=== PATIENT | female | born 1970 | race Caucasian/White ===

== ENCOUNTER 2016-11-30 13:41 | Emergency (ER) | payer OTHER ==
[2016-11-30 13:42] VITALS: BP 127/71; PULSE 70; RESP 20; TEMP 99.4; O2SAT 98
[2016-11-30 13:46] VITALS: BP 134/78; PULSE 108; RESP 20; TEMP 98.9; O2SAT 99
[2016-11-30] MEDS ORDERED: NYSTAT/DIPHENHY/LIDO MOUTHWASH (Adult) 120ML SWISH-SPIT ONE (13:58)
[2016-11-30] MEDS ORDERED: PENICILLIN V POTASSIUM 500 MG TAB PO ONE (14:00)
--- NOTE | 2016-11-30 14:01 | PD ---
HPI Chief Complaint: Oral / Dental Pain or Problem Time Seen by Provider: 13:59 Travel History International Travel<30 days: No Contact w/Intl Traveler<30days: No Traveled to known affect area: No History of Present Illness HPI 46-year-old female presents the emergency department with severe left upper dental pain. She states he lost a #15 tooth yesterday, and she now has severe pain, and localized swelling since yesterday. Her pain is currently a 9 out 10. She has increased pain with hot and cold. She denies fever, chills, or difficulty swallowing. Patient is allergic to nonsteroidal medications and tramadol. She's been taking Tylenol without relief. Her allergy is anaphylactic with NSAIDs. PFSH Past Medical History Medical History: Denies Significant Hx ?: Not Past Surgical History Hysterectomy: Yes Tonsillectomy: Yes Social History Alcohol Use: No Tobacco Use: No Substance Use: No Allergies-Medications (Allergen,Severity, Reaction): Coded Allergies: Nonsteroidal Anti-Inflammatory Agts (Verified Allergy, Unknown, Swelling, 11/30/16) Tramadol (Verified Allergy, Unknown, 11/30/16) Reported Meds & Prescriptions Reported Meds & Active Scripts Active Magic Mouthwash Adult Liq (Multi-Ingredient Mouthwash/Gargle) 120 Ml Susp 5-10 Ml SWISH-SWAL ACHS Each 5 mL contains: Nystatin 200,000 units, Diphenhydramine 4.25 mg, Viscous Lidocaine 10 mg, Daugherty syrup 0.8 mL Penicillin V Potassium 500 Mg Tab 500 Mg PO Q6H 10 Days Non-Aspirin Pain Relief ES (Acetaminophen) 500 Mg Tab 1,000 Mg PO Q6HR PRN Review of Systems Except as stated in HPI: all other systems reviewed are Neg General / Constitutional: No: Fever Eyes: No: Visual changes HENT: No: Headaches Cardiovascular: No: Chest Pain or Discomfort Respiratory: No: Shortness of Breath Gastrointestinal: No: Abdominal Pain Genitourinary: No: Dysuria Musculoskeletal: No: Pain Skin: No Rash Neurologic: No: Weakness Psychiatric: No: Depression Endocrine: No: Polydipsia Hematologic/Lymphatic: No: Easy Bruising Physical Exam Narrative GENERAL: Patient is in moderate distress. SKIN: Warm and dry. Normal color. Normal turgor. HEAD: Atraumatic. Normocephalic. Mild swelling of the left upper jaw region. EYES: Pupils equal and round. No scleral icterus. No injection or drainage. ENT: No nasal bleeding or discharge. Mucous membranes pink and moist. Pharynx is clear. TMs are clear bilaterally. Patient has mild swelling to the gingiva of the left upper jaw. Patient is indeed missing a cap from her #15 tooth. NECK: Trachea midline. Supple nontender without lymphadenopathy. CARDIOVASCULAR: Regular rate and rhythm. RESPIRATORY: No accessory muscle use. Clear to auscultation. Breath sounds equal bilaterally. GASTROINTESTINAL: Abdomen soft, non-tender, nondistended. Hepatic and splenic margins not palpable. MUSCULOSKELETAL: Extremities without clubbing, cyanosis, or edema. No obvious deformities. NEUROLOGICAL: Awake and alert. No obvious cranial nerve deficits. Motor grossly within normal limits. Five out of 5 muscle strength in the arms and legs. Normal speech. PSYCHIATRIC: Appropriate mood and affect; insight and judgment normal. Data Data Last Documented VS Vital Signs Date Time Temp Pulse Resp B/P Pulse Ox O2 Delivery O2 Flow Rate FiO2 11/30/16 13:46 98.9 108 20 134/78 99 Orders Seoe-Rpfd-Qkki Liq (Magic Mouthwash Adul (11/30/16 13:58) Penicillin V Potassium (Veetids) (11/30/16 14:00) Bupivacaine-Epi Pf 0.5% Inj (Sensorcaine (11/30/16 14:15) MDM Medical Decision Making Medical Screen Exam Complete: Yes Emergency Medical Condition: Yes Differential Diagnosis Dental pain. Dental caries. Dental abscess. Narrative Course Patient is medically stable at time of exam. Patient is given 500 mg Pen-Vee K by mouth. Patient is given a trial of Magic mouthwash by mouth. Patient is offered but refuses a dental block at this time. Patient will be continued on Pen-Vee K 500 mg 4 times a day. Patient is given a prescription for acetaminophen 1000 mg every 6 hours #60. Patient is given Magic mouthwash as directed 120 mL with 1 refill. Patient is to use hot compresses and ice as needed. Patient follow-up with local dentist resources as discussed. 1500 hrs. patient is noted to be absent from the room prior to being discharged by nursing staff. It seems the patient eloped prior to receiving prescriptions and discharge information. Diagnosis Primary Impression: Dental abscess Referrals: Dentist Patient Instructions: Dental Abscess (ED), General Instructions Additional Instructions: Patient is medically stable at time of exam. Patient is given 500 mg Pen-Vee K by mouth. Patient is given a trial of Magic mouthwash by mouth. Patient is offered but refuses a dental block at this time. Patient will be continued on Pen-Vee K 500 mg 4 times a day. Patient is given a prescription for acetaminophen 1000 mg every 6 hours #60. Patient is given Magic mouthwash as directed 120 mL with 1 refill. Patient is to use hot compresses and ice as needed. Patient follow-up with local dentist resources as discussed. Med/Other Pt SpecificInfo: Prescription(s) given Scripts Tmcnkjfj-Jipjosqyazsrsxt-Ktblxxsbu Liq (Magic Mouthwash Adult Liq)120 Ml Susp5- 10 Ml SWISH-SWAL ACHS #120 ML Ref 2 Each 5 mL contains: Nystatin 200,000 units, Diphenhydramine 4.25 mg, Viscous Lidocaine 10 mg, Daugherty syrup 0.8 mL Prov:Jenny Meyer MD 11/30/16 Penicillin V Potassium 500 Mg [id number] Mg PO Q6H 10 Days Prov:Jenny Meyer MD 11/30/16 Acetaminophen (Non-Aspirin Pain Relief ES)500 Mg Tab1,000 Mg PO Q6HR PRN (PAIN) #60 TAB Prov:Jenny Meyer MD 11/30/16 Disposition: 01 DISCHARGE HOME Condition: Stable Kalpesh Vivas Nov 30, 2016 14:01
[2016-11-30] MEDS ORDERED: BUPIVACAINE/EPINEPHRINE 0.5% PF 10 ML VIAL EPIDURAL ONE (14:15)
[2016-11-30] MEDS ORDERED: MAGICADU2 SWISH-SWAL (14:50)
[2016-11-30] MEDS ORDERED: NON-500T13 PO (14:50)
[2016-11-30] MEDS ORDERED: PENI500T PO (14:50)
== END 2016-11-30 15:12 | disposition home or self-care (01) ==
LOC: NEPK 13:41
DX: K04.7 Periapical abscess without sinus (principal)
CPT/HCPCS: 99284

== ENCOUNTER 2017-01-15 22:42 | Emergency (ER) | payer OTHER ==
[~2017-01-15] VITALS: Ht 157.5 cm; Wt 82.0 kg
[~2017-01-15 22:42] MED LIST: MAGICADU2 SWISH-SWAL; NON-500T13 PO; PENI500T PO
[2017-01-15 22:45] VITALS: BP 120/72; PULSE 63; RESP 16; TEMP 98.4; O2SAT 98
--- NOTE | 2017-01-15 23:05 | PD ---
HPI Chief Complaint: Skin Problem Time Seen by Provider: 23:05 Travel History International Travel<30 days: No Contact w/Intl Traveler<30days: No Traveled to known affect area: No History of Present Illness HPI 46 year-old female presents to [facility] department for evaluation of erythema on her left buttock. Patient states that she has been treated for an abscess recently. She was on it Bactrim and the area was lanced. She states that it improved however 2 new areas have a fall and are painful. There is one on her left buttock began draining but is still reddened. Denies any fever or chills. Denies new cleansing products. Does not recall getting bit by an insect. No other symptoms to report. PFSH Past Medical History ?: Not Past Surgical History Hysterectomy: Yes Tonsillectomy: Yes Social History Alcohol Use: No Tobacco Use: No Substance Use: No Allergies-Medications (Allergen,Severity, Reaction): Coded Allergies: diclofenac (Unverified Allergy, Unknown, Swelling, 01/15/17) etodolac (Unverified Allergy, Unknown, Swelling, 01/15/17) flurbiprofen (Unverified Allergy, Unknown, Swelling, 01/15/17) ibuprofen (Unverified Allergy, Unknown, Swelling, 01/15/17) indomethacin (Unverified Allergy, Unknown, Swelling, 01/15/17) ketoprofen (Unverified Allergy, Unknown, Swelling, 01/15/17) ketorolac (Unverified Allergy, Unknown, Swelling, 01/15/17) naproxen (Unverified Allergy, Unknown, Swelling, 01/15/17) oxaprozin (Unverified Allergy, Unknown, Swelling, 01/15/17) tramadol (Unverified Allergy, Unknown, 01/15/17) Reported Meds & Prescriptions Reported Meds & Active Scripts Active Clindamycin (Clindamycin HCl) 150 Mg Cap 300 Mg PO Q6H 10 Days Non-Aspirin Pain Relief ES (Acetaminophen) 500 Mg Tab 1,000 Mg PO Q6HR PRN Review of Systems Except as stated in HPI: all other systems reviewed are Neg Physical Exam Narrative GENERAL: Well-nourished female patient, in no acute distress SKIN: Focused skin assessment warm/dry. There is a 3 cm in diameter area of erythema on the left buttock with a scabbed center. There is no fluctuance. The area is tender to touch. HEAD: Atraumatic. Normocephalic. EYES: Pupils equal and round. No scleral icterus. No injection or drainage. ENT: No nasal bleeding or discharge. Mucous membranes pink and moist. NECK: Trachea midline. No JVD. CARDIOVASCULAR: Regular rate and rhythm. No murmur appreciated. RESPIRATORY: No accessory muscle use. Clear to auscultation. Breath sounds equal bilaterally. GASTROINTESTINAL: Abdomen soft, non-tender, nondistended. Hepatic and splenic margins not palpable. MUSCULOSKELETAL: No obvious deformities. No clubbing. No cyanosis. No edema. NEUROLOGICAL: Awake and alert. No obvious cranial nerve deficits. Motor grossly within normal limits. Normal speech. PSYCHIATRIC: Appropriate mood and affect; insight and judgment normal. Data Data Last Documented VS Vital Signs Date Time Temp Pulse Resp B/P (MAP) Pulse Ox O2 Delivery O2 Flow Rate FiO2 01/15/17 23:40 01/15/17 22:45 98.4 63 16 98 Room Air Orders Orders Acetaminophen (Tylenol) (01/15/17 23:15) Clindamycin (Cleocin) (01/15/17 23:15) MDM Medical Decision Making Medical Screen Exam Complete: Yes Emergency Medical Condition: Yes Medical Record Reviewed: Yes Differential Diagnosis Cellulitis versus abscess versus erysipelas versus folliculitis Narrative Course 46-year-old female presents to emergency department for evaluation of left buttock lesion. Physical exam is consistent with a cellulitis. I have explained the patient that this may develop into an abscess in the drain. She' ll be started on clindamycin. She is given her first dose here. She is encouraged to follow-up with primary care provider return immediately with any acute worsening of symptoms. Diagnosis Primary Impression: Cellulitis of left buttock Referrals: Primary Care Physician Patient Instructions: Cellulitis (ED), General Instructions Additional Instructions: WARM COMPRESSES TO THE AFFECTED AREA START ANTIBIOTICS IN AM; TAKE UNTIL ALL GONE TYLENOL DIRECTED ON THE PACKAGE NEEDED FOR PAIN RETURN IMMEDIATELY WITH ANY ACUTE WORSENING OF SYMPTOMS Med/Other Pt SpecificInfo: Prescription(s) given Scripts Clindamycin (Clindamycin) 150 Mg Cap 300 MG PO Q6H for Infection for 10 Days, #80 CAP 0 Refills Prov: Dawna Umana 01/15/17 Disposition: 01 DISCHARGE HOME Condition: Stable Dawna Umana Jan 15, 2017 23:05
[2017-01-15] MEDS ORDERED: CLIN1CAP5 PO (23:10)
[2017-01-15] MEDS ORDERED: ACETAMINOPHEN 500 MG CPLT PO ONE (23:15)
[2017-01-15] MEDS ORDERED: CLINDAMYCIN 150 MG CAP PO ONE (23:15)
== END 2017-01-15 23:53 | disposition home or self-care (01) ==
LOC: NEPD 22:42
DX: L03.317 Cellulitis of buttock (principal); Z88.6 Allergy status to analgesic agent; Z88.8 Allergy status to other drugs, medicaments and biological substances
CPT/HCPCS: 99283

== ENCOUNTER 2017-04-10 12:11 | Emergency (ER) | payer OTHER ==
[~2017-04-10] VITALS: Ht 157.5 cm; Wt 80.0 kg
[~2017-04-10 12:11] MED LIST changes: +CLIN150C14 PO; -MAGICADU2 SWISH-SWAL; -PENI500T PO
[2017-04-10 12:13] VITALS: BP 140/78; PULSE 78; RESP 14; TEMP 97.9; O2SAT 98
--- NOTE | 2017-04-10 13:01 | RADRPT ---
EXAM DATE/TIME: 04/10/2017 12:45 [facility] COMPARISON: No previous studies available for comparison. INDICATIONS : Right shoulder pain. No known trauma. MEDICAL HISTORY : None. SURGICAL HISTORY : None. ENCOUNTER: Initial ACUITY: 2 weeks PAIN SCORE: 8/10 LOCATION: Right shoulder. FINDINGS: Multiple view examination of the right shoulder demonstrates no evidence of fracture or dislocation. The glenohumeral and acromioclavicular joints are maintained. There is normal range of motion betwe en internal and external rotation. Bony mineralization is normal. CONCLUSION: Radiographic appearance of the right shoulder is within normal limits. Andres Krishna MD on April 10, 2017 at 12:59 Board Certified Radiologist. This report was verified electronically.
--- NOTE | 2017-04-10 13:02 | RADRPT ---
EXAM DATE/TIME: 04/10/2017 12:47 [facility] COMPARISON: No previous studies available for comparison. INDICATIONS : Right humerus pain. No known trauma. MEDICAL HISTORY : None. SURGICAL HISTORY : None. ENCOUNTER: Initial ACUITY: 2 weeks PAIN SCORE: 8/10 LOCATION: Right humerus. FINDINGS: Two view examination of the right humerus demonstrates no evidence of fracture or dislocation. Bony mineralization is normal. The soft tissue structures are intact. CONCLUSION: Normal radiographic appearance of the right humerus. Andres Krishna MD on April 10, 2017 at 13:00 Board Certified Radiologist. This report was verified electronically.
--- NOTE | 2017-04-10 13:03 | RADRPT ---
EXAM DATE/TIME: 04/10/2017 12:49 [facility] COMPARISON: No previous studies available for comparison. INDICATIONS : Right forearm pain. No known injury. MEDICAL HISTORY : None. SURGICAL HISTORY : None. ENCOUNTER: Initial ACUITY: 2 weeks PAIN SCORE: 8/10 LOCATION: Right forearm. FINDINGS: Two view examination of the right forearm demonstrates no evidence of fracture or dislocation. Bony mineralization is normal. The soft tissue structures are intact. CONCLUSION: Normal radiographic appearance of the right forearm. Andres Krishna MD on April 10, 2017 at 13:00 Board Certified Radiologist. This report was verified electronically.
--- NOTE | 2017-04-10 13:18 | PD ---
HPI Chief Complaint: Pain: Acute or Chronic Time Seen by Provider: 12:27 Travel History International Travel<30 days: No Contact w/Intl Traveler<30days: No Traveled to known affect area: No History of Present Illness HPI Patient is a 46-year-old female who presents to the ER with complaints of right forearm pain which has been ongoing for the past 3-4 weeks. Patient reports that she was working at [employer] when she initially hurt her right forearm while lifting a heavy object. She reports that pain has been persistent for the past 3-4 weeks, reports that her pain was exacerbated yesterday while lifting something heavy. Reports that the pain now radiates from her right forearm to her right shoulder. Patient denies any trauma, denies any fall. Denies any other c/o at this time. PFSH Past Medical History Bipolar Disorder: Yes Diminished Hearing: No Psychiatric: Yes Respiratory: Yes (bronchitis) Tetanus Vaccination: < 5 Years Influenza Vaccination: No ?: Not LMP: 2013 : 2 Para: 2 Past Surgical History Hysterectomy: Yes Tonsillectomy: Yes Social History Alcohol Use: Yes (rare) Tobacco Use: Yes (3 cigarrettes per day) Substance Use: No Allergies-Medications (Allergen,Severity, Reaction): Coded Allergies: NSAIDS (Non-Steroidal Anti-Inflamma (Verified Allergy, Mild, swelling, 02/15) risperidone (Verified Allergy, Mild, swelling, 04/10/17) diclofenac (Verified Allergy, Unknown, Swelling, 04/10/17) etodolac (Verified Allergy, Unknown, Swelling, 04/10/17) flurbiprofen (Verified Allergy, Unknown, Swelling, 04/10/17) ibuprofen (Verified Allergy, Unknown, Swelling, 04/10/17) indomethacin (Verified Allergy, Unknown, Swelling, 04/10/17) ketoprofen (Verified Allergy, Unknown, Swelling, 04/10/17) ketorolac (Verified Allergy, Unknown, Swelling, 04/10/17) naproxen (Verified Allergy, Unknown, Swelling, 04/10/17) oxaprozin (Verified Allergy, Unknown, Swelling, 04/10/17) tramadol (Verified Allergy, Unknown, swollen, 04/10/17) Reported Meds & Prescriptions Reported Meds & Active Scripts Active Tylenol-Codeine #3 (Acetaminophen-Codeine) 300-30 mg Tab 1 Tab PO Q4H PRN Review of Systems General / Constitutional: No: Fever Eyes: No: Visual changes HENT: No: Headaches Cardiovascular: No: Chest Pain or Discomfort Respiratory: No: Shortness of Breath Gastrointestinal: No: Abdominal Pain Genitourinary: No: Dysuria Musculoskeletal: Positive: Pain (right forearm/shoulder) Skin: No Rash Neurologic: No: Weakness Psychiatric: No: Depression Endocrine: No: Polydipsia Hematologic/Lymphatic: No: Easy Bruising Physical Exam Narrative GENERAL: NAD SKIN: Focused skin assessment warm/dry. HEAD: Atraumatic. Normocephalic. EYES: Pupils equal and round. No scleral icterus. No injection or drainage. ENT: No nasal bleeding or discharge. Mucous membranes pink and moist. NECK: Trachea midline. No JVD. CARDIOVASCULAR: Regular rate and rhythm. No murmur appreciated. RESPIRATORY: No accessory muscle use. Clear to auscultation. Breath sounds equal bilaterally. GASTROINTESTINAL: Abdomen soft, non-tender, nondistended. Hepatic and splenic margins not palpable. MUSCULOSKELETAL: No obvious deformities. No clubbing. No cyanosis. No edema. Pulses intact, neurovascularly intact NEUROLOGICAL: Awake and alert. No obvious cranial nerve deficits. Motor grossly within normal limits. Normal speech. PSYCHIATRIC: Appropriate mood and affect; insight and judgment normal. Data Data Last Documented VS Vital Signs Date Time Temp Pulse Resp B/P (MAP) Pulse Ox O2 Delivery O2 Flow Rate FiO2 04/10/17 12:25 16 04/10/17 12:13 97.9 78 140/78 (98) 98 Orders Orders Forearm (2vws) (04/10/17 ) Shoulder, Complete (>2vws) (04/10/17 ) Humerus (Min 2vws) (04/10/17 ) [facility] Medical Decision Making Medical Screen Exam Complete: Yes Emergency Medical Condition: Yes Medical Record Reviewed: Yes Interpretation(s) Vital Signs Date Time Temp Pulse Resp B/P (MAP) Pulse Ox O2 Delivery O2 Flow Rate FiO2 04/10/17 12:25 16 04/10/17 12:13 97.9 78 14 140/78 (98) 98 Differential Diagnosis Shoulder sprain/strain, wrist sprain/strain vs. fx Narrative Course Patient with no obvious deformities on exam, pulses intact, neurovascularly intact. X-ray of her right shoulder, humerus, right forearm is no obvious deformities, plan to have patient follow up with her pcp or orthopedic surgeon. Signs and symptoms of when to return to the emergency room was reviewed with patient in detail. Patient has tolerated Tylenol with codeine without any difficulties or adverse reactions in the past. Diagnosis Primary Impression: Arm pain, right Referrals: Ashutosh Rodriguez MD Patient Instructions: General Instructions Departure Forms: Tests/Procedures, Work Release Enter return to work date: Apr 12, 2017 Additional Instructions: Please provide patient with a copy of her studies at discharge Please follow up with your primary care doctor in 2-3 days Return to the ER if symptoms worsen or progress Return to the ER as needed Please follow up with orthopedic surgeon if symptoms do not improve Scripts Acetaminophen-Codeine (Tylenol-Codeine #3) 300-30 mg Tab 1 TAB PO Q4H Y for PAIN, #10 TAB 0 Refills Prov: Federica Gilbert DO 04/10/17 Disposition: 01 DISCHARGE HOME Condition: Stable Federica Gilbert DO Apr 10, 2017 13:18
[2017-04-10] MEDS ORDERED: TYLETAB34 PO ×2 (13:19→13:34)
[2017-04-10 13:25] VITALS: BP 130/81; TEMP 97.9
== END 2017-04-10 13:25 | disposition home or self-care (01) ==
LOC: NEPD 12:11
DX: M79.631 Pain in right forearm (principal); F31.9 Bipolar disorder, unspecified; F17.210 Nicotine dependence, cigarettes, uncomplicated; Z88.8 Allergy status to other drugs, medicaments and biological substances; Z88.6 Allergy status to analgesic agent; Z88.5 Allergy status to narcotic agent
CPT/HCPCS: 73030; 73060; 73090; 99284

== ENCOUNTER 2017-05-05 13:04 | Emergency (ER) | payer OTHER ==
[~2017-05-05] VITALS: Ht 170.2 cm; Wt 70.0 kg
[~2017-05-05 13:04] MED LIST changes: -CLIN150C14 PO; -NON-500T13 PO; +TYLETAB34 PO
[2017-05-05 13:34] VITALS: BP 132/64; PULSE 95; RESP 14; TEMP 98.8; O2SAT 97
[2017-05-05 14:52] LABS: AUTOMATED NEUTROPHIL # 5.4 TH/MM3 (1.8-7.7); BASOPHIL % 0.5 % (0.0-2.0); EOSINOPHIL % 0.5 % (0.0-4.0); HEMATOCRIT 41.6 % (35.0-46.0); HEMOGLOBIN 14.3 GM/DL (11.6-15.3); LYMPH % 29.1 % (9.0-44.0); LYMPHOCYTE # 2.6 TH/MM3 (1.0-4.8); MEAN CORPUSCULAR HEMOGLOBIN 30.8 PG (27.0-34.0); MEAN CORPUSCULAR HGB CONC 34.2 % (32.0-36.0); MEAN PLATELET VOLUME 9.5 FL (7.0-11.0); MONO % 8.5 % (0.0-8.0); MONOCYTE # 0.8 TH/MM3 (0-0.9); NEUT % 61.4 % (16.0-70.0); PLATELET COUNT 291 TH/MM3 (150-450); RED BLOOD COUNT 4.63 MIL/MM3 (4.00-5.30); RED CELL DISTRIBUTION WIDTH 13.5 % (11.6-17.2); WHITE BLOOD COUNT 8.9 TH/MM3 (4.0-11.0)
[2017-05-05 15:01] LABS: BILIRUBIN, URINE NEG (NEG); BLOOD, URINE TRACE (NEG); GLUCOSE,URINE NEG (NEG); KETONE, URINE 40 mg/dL (NEG); MUCUS URINE MOD /lpf (OCC); NITRITE,URINE NEG (NEG); PH, URINE 7.5 (5.0-8.5); SQUAMOUS EPITHELIAL CELL URINE 8 /hpf (0-5); URINE COLOR YELLOW (YELLW/STRAW); URINE LEUKOCYTE ESTERASE NEG (NEG)
[2017-05-05 15:23] LABS: ALBUMIN 3.7 GM/DL (3.4-5.0); BICARBONATE 30.4 MEQ/L (21.0-32.0); BLOOD UREA NITROGEN 10 MG/DL (7-18); CALCIUM 8.8 MG/DL (8.5-10.1); CHLORIDE 104 MEQ/L (98-107); CREATININE 0.65 MG/DL (0.50-1.00); GLOMERULAR FILTRATION RATE 99 ML/MIN (>89); GLUCOSE,RANDOM 98 MG/DL (74-106); SODIUM (NA) 140 MEQ/L (136-145)
[2017-05-05 15:29] LABS: ALKALINE PHOSPHATASE 53 U/L (45-117); ALT (GPT) 17 U/L (10-53); AST (GOT) 15 U/L (15-37); TOTAL BILIRUBIN ADULT 0.3 MG/DL (0.2-1.0); TOTAL PROTEIN 7.5 GM/DL (6.4-8.2)
[2017-05-05] MEDS ORDERED: LEXA20TA PO (16:54)
[2017-05-05] MEDS ORDERED: CARI1CAP2 PO (16:54)
[2017-05-05 18:05] VITALS: BP 123/88; PULSE 90; RESP 20; TEMP 98.4; O2SAT 97
[2017-05-05 18:08] VITALS: BP 123/88; PULSE 90; RESP 20; O2SAT 97
--- NOTE | 2017-05-05 18:27 | PD ---
HPI Chief Complaint: Psychiatric Symptoms Time Seen by Provider: 17:48 Travel History International Travel<30 days: No Contact w/Intl Traveler<30days: No Traveled to known affect area: No History of Present Illness HPI 46-year-old female presents to the emergency department under [place] act. According to the law enforcement report the patient "stated that she has been hearing voices that are killing her to kill herself. She stated that she wants to kill herself by walking into traffic." On examination of the patient she does not recall making the statements to the officer. She doesn't even recall calling 911. Reports doing cocaine last night and doesn't recall her actions. She denies suicidal or homicidal ideations at this time. Denies auditory or visual hallucinations. Has history of bipolar and schizophrenia and stopped taking her medications 2 weeks ago. She would like to get back onto her medications. She has no emergent medical complaints at this time. Denies chest pain, shortness breath, abdominal pain, vomiting, fevers. No known relieving or aggravating factors. Duration 1-2 days. Symptoms are moderate to severe in severity. Allergies to NSAIDs. No other modifying factors or associated signs and symptoms. PFSH Past Medical History Bipolar Disorder: Yes Diminished Hearing: No Psychiatric: Yes Respiratory: Yes (bronchitis) : 2 Para: 2 Past Surgical History Hysterectomy: Yes Tonsillectomy: Yes Social History Alcohol Use: Yes (rare) Tobacco Use: Yes (3 cigarrettes per day) Substance Use: No Allergies-Medications (Allergen,Severity, Reaction): Coded Allergies: NSAIDS (Non-Steroidal Anti-Inflamma (Verified Allergy, Mild, swelling, 05/05) risperidone (Verified Allergy, Mild, swelling, 05/05/17) diclofenac (Verified Allergy, Unknown, Swelling, 05/05/17) etodolac (Verified Allergy, Unknown, Swelling, 05/05/17) flurbiprofen (Verified Allergy, Unknown, Swelling, 05/05/17) ibuprofen (Verified Allergy, Unknown, Swelling, 05/05/17) indomethacin (Verified Allergy, Unknown, Swelling, 05/05/17) ketoprofen (Verified Allergy, Unknown, Swelling, 05/05/17) ketorolac (Verified Allergy, Unknown, Swelling, 05/05/17) naproxen (Verified Allergy, Unknown, Swelling, 05/05/17) oxaprozin (Verified Allergy, Unknown, Swelling, 05/05/17) tramadol (Verified Allergy, Unknown, swollen, 05/05/17) Reported Meds & Prescriptions Reported Meds & Active Scripts Active Tylenol-Codeine #3 (Acetaminophen-Codeine) 300-30 mg Tab 1 Tab PO Q4H PRN Reported Lexapro (Escitalopram Oxalate) 20 Mg Tab 20 Mg PO DAILY Vraylar (Cariprazine) 3 Mg Cap 3 Mg PO DAILY Review of Systems Except as stated in HPI: all other systems reviewed are Neg Physical Exam Narrative GENERAL: Well-nourished, well-developed female patient, in no acute distress SKIN: Warm and dry. HEAD: Atraumatic. Normocephalic. EYES: Pupils equal and round. ENT: Mucosa pink and moist. NECK: Supple. Trachea midline. CARDIOVASCULAR: Regular rate and rhythm. No murmur appreciated. RESPIRATORY: No accessory muscle use. Clear to auscultation. Breath sounds equal bilaterally. GASTROINTESTINAL: Abdomen soft, non-tender, nondistended. Hepatic and splenic margins not palpable. Bowel sounds are active 4 quadrants. MUSCULOSKELETAL: No obvious deformities. No clubbing. No cyanosis. No edema. BACK: No CVA tenderness. NEUROLOGICAL: Awake and alert. Oriented 3. No obvious cranial nerve deficits. Motor grossly within normal limits. Normal speech. Moves all extremities. 5/5 strength to all extremities. PSYCHIATRIC: No delusional thought processes. No hallucinations. Data Data Last Documented VS Vital Signs Date Time Temp Pulse Resp B/P (MAP) Pulse Ox O2 Delivery O2 Flow Rate FiO2 05/05/17 18:19 05/05/17 18:08 90 20 97 Room Air 05/05/17 18:05 98.4 Orders Orders Complete Blood Count With Diff (05/05/17 13:55) Comprehensive Metabolic Panel (05/05/17 13:55) Urinalysis - C+S If Indicated (05/05/17 13:55) Ed Urine Pregnancytest Poc (05/05/17 13:55) Psych Screen (05/05/17 13:55) Drug Screen, Random Urine (05/05/17 13:55) Diet Regular Basic (05/05/17 Dinner) Labs Laboratory Tests Test 05/05/17 14:16 White Blood Count 8.9 TH/MM3 Red Blood Count 4.63 MIL/MM3 Hemoglobin 14.3 GM/DL Hematocrit 41.6 % Mean Corpuscular Volume 90.0 FL Mean Corpuscular Hemoglobin 30.8 PG Mean Corpuscular Hemoglobin Concent 34.2 % Red Cell Distribution Width 13.5 % Platelet Count 291 TH/MM3 Mean Platelet Volume 9.5 FL Neutrophils (%) (Auto) 61.4 % Lymphocytes (%) (Auto) 29.1 % Monocytes (%) (Auto) 8.5 % Eosinophils (%) (Auto) 0.5 % Basophils (%) (Auto) 0.5 % Neutrophils # (Auto) 5.4 TH/MM3 Lymphocytes # (Auto) 2.6 TH/MM3 Monocytes # (Auto) 0.8 TH/MM3 Eosinophils # (Auto) 0.0 TH/MM3 Basophils # (Auto) 0.0 TH/MM3 CBC Comment DIFF FINAL Differential Comment Urine Color YELLOW Urine Turbidity CLEAR Urine pH 7.5 Urine Specific Mitchell 1.029 Urine Protein 30 mg/dL Urine Glucose (UA) NEG mg/dL Urine Ketones 40 mg/dL Urine Occult Blood TRACE Urine Nitrite NEG Urine Bilirubin NEG Urine Urobilinogen 4.0 MG/DL Urine Leukocyte Esterase NEG Urine RBC 7 /hpf Urine WBC 1 /hpf Urine Squamous Epithelial Cells 8 /hpf Urine Mucus MOD /lpf Microscopic Urinalysis Comment CULT NOT INDICATED Blood Urea Nitrogen 10 MG/DL Creatinine 0.65 MG/DL Random Glucose 98 MG/DL Total Protein 7.5 GM/DL Albumin 3.7 GM/DL Calcium Level 8.8 MG/DL Alkaline Phosphatase 53 U/L Aspartate Amino Transf (AST/SGOT) 15 U/L Alanine Aminotransferase (ALT/SGPT) 17 U/L Total Bilirubin 0.3 MG/DL Sodium Level 140 MEQ/L Potassium Level 3.6 MEQ/L Chloride Level 104 MEQ/L Carbon Dioxide Level 30.4 MEQ/L Anion Gap 6 MEQ/L Estimat Glomerular Filtration Rate 99 ML/MIN Urine Opiates Screen NEG Urine Barbiturates Screen NEG Urine Amphetamines Screen NEG Urine Benzodiazepines Screen NEG Urine Cocaine Screen POS Urine Cannabinoids Screen NEG MDM Medical Decision Making Medical Screen Exam Complete: Yes Emergency Medical Condition: Yes Medical Record Reviewed: Yes Differential Diagnosis Polysubstance abuse, cocaine abuse, medical clearance for psychiatric admission , suicidal threat Narrative Course Patient presents under a [place] act. Physical examination and vital signs are essentially unremarkable. Patient has no medical complaints to report. Psych screen has been ordered. If the laboratory results are unremarkable, the patient will be medically cleared for psychiatric evaluation and disposition. Diagnosis Primary Impression: Medical clearance for psychiatric admission Condition: Stable Niya Dueñas May 05, 2017 18:27
== END 2017-05-05 19:24 ==
LOC: NEDAMB 13:04 → NEPJ 19:24
DX: R45.851 Suicidal ideations (principal); F31.9 Bipolar disorder, unspecified; F20.9 Schizophrenia, unspecified; F17.210 Nicotine dependence, cigarettes, uncomplicated; Z79.899 Other long term (current) drug therapy; Z88.8 Allergy status to other drugs, medicaments and biological substances
CPT/HCPCS: 80053; 80307; 81001; 84703; 85025; 99285